=== PATIENT | male | born 1960 | race Caucasian/White ===

== ENCOUNTER 2016-06-13 15:54 | Inpatient (IN) | payer SELFPAY ==
--- NOTE | ~2016-06-13 | OP ---
Record Of Operation [facility] [address] [place] [place]. [address] NAME: KIM SMITH : 64 STATUS : ADM IN PAT#: [id number] AGE: 55 ADM/REG DATE : 06/13/16 MR#: [id number] REPORT SERV DATE: 06/13/16 DICTATED BY: RODRIGO MCCLENDON DATE: 06/13/16 REPORT STATUS : Draft TRANSCRIBED BY: MODL DATE: 06/13/16 DATE OF PROCEDURE: 06/13/2016 CARDIAC CATHETERIZATION REPORT PROCEDURE: Left heart catheterization, coronary arteriography, left ventriculography, PCI/stent of proximal LAD. INDICATION: Recent anteroseptal myocardial infarction with persistent ischemic changes in the precordial leads. DESCRIPTION OF PROCEDURE: The patient was taken emergently to the cardiac catheterization laboratory where he was prepped and draped in a sterile fashion. Conscious sedation was obtained using intravenous Versed and fentanyl. The right inguinal region was anesthetized using 1% Xylocaine. The right femoral artery was then entered using a front wall approach and cannulated with 6-Bruneian arterial sheath. A 6-Bruneian JL4 diagnostic catheter was then used to engage the left main coronary artery. Serial angiograms were obtained. This catheter was then exchanged for a 6-Bruneian Junior right catheter which was used to engage the right coronary artery. Serial angiograms were obtained. This catheter was then exchanged for a 6-Bruneian angled pigtail catheter which was used to cross the aortic valve which time a left ventriculogram was performed. The catheter was then withdrawn back across the aortic valve with no significant aortic transvalvular gradient. Results of the study are as follows: HEMODYNAMICS: Aorta 121/68 with a mean pressure of 92 mmHg. Left ventricle 126/15 with end- diastolic pressure of 26 mmHg. CORONARY ANATOMY: 1. Left Main coronary artery: The left main coronary artery arises normally from the left coronary cusp. This vessel appears normal. 2. Left anterior descending artery: The left anterior descending artery arises normally from the left main coronary artery. This vessel has a discrete 90% proximal stenosis just prior to the takeoff of the first septal air traffic instructor. The first diagonal artery has a 50% to 60% stenosis at the takeoff. The mid LAD is diffusely diseased to 40 to 50%. 3. Ramus intermedius: The ramus intermedius arises normally from the left main coronary artery. This is a medium to large caliber vessel which has a 40% to 50% stenosis in the proximal to mid segment. 4. Left circumflex artery: The left circumflex artery arises normally from the left main coronary artery. This vessel is nondominant. This vessel is diffusely diseased in its mid segment to 50%. 5. Right coronary artery: The right coronary artery arises normally from the right coronary cusp. This vessel is dominant. This vessel has a 30 to 40% tubular stenosis involving the takeoff of a medium caliber right ventricular branch. LEFT VENTRICULOGRAM: Left ventriculogram was performed which shows mild anterolateral Record Of Operation [facility] [address] [place]. [address] NAME: KIM SMITH : 64 STATUS : ADM IN [facility]#: [id number] AGE: 55 ADM/REG DATE : 06/13/16 MR#: [id number] REPORT SERV DATE: 06/13/16 DICTATED BY: RODRIGO MCCLENDON DATE: 06/13/16 REPORT STATUS : Draft TRANSCRIBED BY: ROSEMARY DATE: 06/13/16 hypokinesis. Systolic function is borderline with an ejection fraction of 50%. There is trivial mitral insufficiency. After the above findings, it was decided to proceed with PCI/stent of the proximal LAD lesion. A 6-Bruneian JL4 guiding catheter was used with a ChoICE PT 0.014 x 182 cm extra support wire to cross the proximal LAD lesion. A REBEL 2.5 x 16 mm bare-metal stent was then carefully positioned, verified its location in relation to the first diagonal artery in multiple views. It was then deployed using 11 atmospheres for 20 seconds. An additional inflation was performed at 14 atmospheres for 20 seconds. Repeat angiography revealed a 0% residual stenosis in the stented segment. There was some spasm of the vessel distal to the stent. Intracoronary Cardene was then administered and the wire was pulled back to the region of the stent. Repeat angiography revealed resolution of the spasm with EMELIA-3 grade flow and no dissection flap, thrombus, embolization, or occlusion apparent. COMPLICATIONS: There were no apparent complications. CONCLUSIONS: 1. Multivessel coronary artery disease as described above. Flow-limiting disease of the proximal LAD. 2. Regional wall motion abnormality as described above. Ejection fraction of 50%. Trivial mitral insufficiency. 3. Successful PCI/stent of 90% proximal LAD to 0% residual stenosis using a REBEL 2.5 x 16 mm bare-metal stent. 4. No apparent complications. SA/MODL Rodrigo Mcclendon M.D., [facility] / [id number] CC: Rodrigo Mcclendon M.D., [facility]
--- NOTE | ~2016-06-13 | HP ---
History And Physical [place] [id number] [facility] [place]. [address] NAME: KIM SMITH : 64 STATUS : ADM IN [facility]#: [id number] AGE: 55 ADM/REG DATE : 06/13/16 MR#: [id number] REPORT SERV DATE: 06/13/16 DICTATED BY: RODRIGO MCCLENDON DATE: 06/13/16 REPORT STATUS : Draft TRANSCRIBED BY: MODL DATE: 06/13/16 DATE OF ADMISSION: 06/13/2016 HISTORY OF PRESENT ILLNESS: Mr. Kim Smith is a 55-year-old gentleman without past known cardiac history, who presented to [facility] in [place], complaining of some substernal chest pressure and arm discomfort. The patient reports that his symptoms actually began 3 days ago while riding his bike. He reports he began experiencing bilateral arm discomfort and some chest tightness. He reports that he was having shortness of breath and got off his bike and began walking. He reports that at some point, he apparently passed out. He reports that this was not witnessed and he does not know how long he was out. He reports no tachy palpitations, nausea, or diaphoresis prior to this episode. He reports that he has had no similar episodes before or after. REVIEW OF SYSTEMS: The patient gives a qzygv-kw-qkom-day history of paroxysmal nocturnal dyspnea, orthopnea, and some intermittent chest discomfort. He denies any gastrointestinal, genitourinary, neurologic, or respiratory complaints except as per HPI. PAST MEDICAL HISTORY: The patient reports is unremarkable. The patient is very pleasant, but seems somewhat challenged when asked to recall previous history, family history, and review of systems. He reports he is disabled but cannot explain why this is so. He denies any previous operations or hospitalizations. MEDICATIONS PRIOR TO ADMISSION: None. ALLERGIES: THE PATIENT REPORTS HE DOES NOT THINK HE IS ALLERGIC TO ANYTHING. SOCIAL HISTORY: The patient smokes approximately one pack per day. PHYSICAL EXAMINATION: GENERAL: This is a well-developed, well-nourished, 55-year-old white male, who is alert and oriented x3, but who appears to have some difficulty answering questions secondary to cognitive inability to do so. This patient appears older than his stated age. VITAL SIGNS: Blood pressure 120/70, pulse 70, and respiratory rate 16. NECK: No jugular venous distention, hepatojugular reflux, or carotid bruits. CARDIOVASCULAR: Normal rate with regular rhythm. No murmur, gallop, click, or rub. LUNGS: Clear to auscultation without wheezes, rales, or rhonchi. ABDOMEN: Soft, nontender, and nondistended. Positive bowel sounds. EXTREMITIES: Without clubbing, cyanosis, or edema. DATA: EKG shows what appears to be a recent anteroseptal myocardial infarction with ongoing ST-segment elevation. Troponin reported from [facility] was greater than 6. ASSESSMENT: History And Physical [address] [address] NAME: KIM SMITH : 64 STATUS : ADM IN [facility]#: [id number] AGE: 55 ADM/REG DATE : 06/13/16 MR#: [id number] REPORT SERV DATE: 06/13/16 DICTATED BY: RODRIGO MCCLENDON DATE: 06/13/16 REPORT STATUS : Draft TRANSCRIBED BY: ROSEMARY DATE: 06/13/16 1. Recent anteroseptal myocardial infarction with ongoing ischemia. 2. Coronary artery disease. 3. Cognitive dysfunction. PLAN: 1. Emergent left heart catheterization and PCI. 2. We will ask for social sciences department chair evaluation of the patient's social situation. We will try to arrange some type of medication assistance for him as an outpatient. /ROSEMARY Rodrigo Mcclendon M.D., [facility] / [id number] CC: Rodrigo Mcclendon M.D., [facility]
[2016-06-13 20:46] LABS: CK-MB 3.1 NG/ML; CPK < 7 U/L (0-200)
[2016-06-13 20:47] LABS: TROPONIN I 5.17 NG/ML (<0.05)
[2016-06-14 02:14] LABS: BASOPHILS 0.5 %; BASOPHILS ABSOLUTE 0.04 10/3/uL (0.0-0.16); EOSINOPHILS 2.8 %; EOSINOPHILS ABSOLUTE 0.25 10/3/uL (0.0-0.53); HEMATOCRIT 36.2 % (40.0-51.0); HEMOGLOBIN 12.3 g/dL (13.6-17.8); IMMATURE GRANULOCYTES 0.2 %; IMMATURE GRANULOCYTES ABSOLUTE 0.02 10/3/uL (0.0-0.11); LYMPHOCYTES 28.6 %; LYMPHOCYTES ABSOLUTE 2.52 10/3/uL (0.67-4.30); MEAN CORPUSCULAR HEMOGLOB 31.9 pg (26.0-34.0); MEAN PLATELET VOLUME 9.4 fL (9.2-13.0); MONOCYTES 9.4 %; MONOCYTES ABSOLUTE 0.83 10/3/uL (0.21-1.20); NEUTROPHILS 58.5 %; NEUTROPHILS ABSOLUTE 5.16 10/3/uL (2.02-8.40); PLATELET COUNT 182 10/3/uL (150-400); RBC DISTRIBUTION WIDTH 14.7 % (12.0-16.0); RED CELL COUNT 3.85 10/6/uL (4.7-6.1); WHITE BLOOD CELLS 8.8 10/3/uL (4.5-10.5)
[2016-06-14 02:15] LABS: MANUAL DIFF NO %
[2016-06-14 02:31] LABS: BUN (BLOOD UREA NITROGEN) 16 MG/DL (6-23); CALCIUM, SERUM 8.2 MG/DL (8.5-10.4); CHLORIDE, SERUM 107 MMOL/L (96-112); CHOL/HDL RATIO(NOT ORDER) 2.3 (0-5); CHOLESTEROL 154 MG/DL (< 200); CK-MB 16.4 NG/ML; CO2 (CARBON DIOXIDE) 27 MMOL/L (24-34); CPK 372 U/L (0-200); CREATININE 0.87 MG/DL (0.70-1.30); GFR AFRICAN AMERICAN 114 ML/MIN (>=60); GFR NON AFRICAN AMERICAN 99 ML/MIN (>=60); GLUCOSE, SERUM 93 MG/DL (60-99); HDL CHOLESTEROL 67 MG/DL (> 39); LDL CHOLESTEROL 78 MG/DL (< 130); NON-HDL CHOLESTEROL 87 MG/DL (< 160); POTASSIUM, SERUM 3.9 MMOL/L (3.5-5.3); SODIUM, SERUM 142 MMOL/L (135-148); TRIGLYCERIDE 47 MG/DL (< 150)
[2016-06-14 02:32] LABS: CKMB INDEX (NOT ORD) 4.4
[2016-06-14 10:58] LABS: CK-MB 16.9 NG/ML; CKMB INDEX (NOT ORD) 4.6; TROPONIN I 7.08 NG/ML (<0.05)
[2016-06-14 18:54] LABS: CK-MB 10.3 NG/ML
[2016-06-14 18:55] LABS: CKMB INDEX (NOT ORD) 3.2
[2016-06-15 05:31] LABS: CREATININE 1.09 MG/DL (0.70-1.30)
[2016-06-15] MEDS ORDERED: PLAVIX PO (10:27)
[2016-06-15] MEDS ORDERED: LIPITOR40 PO (10:28)
[2016-06-15] MEDS ORDERED: ASA5GR PO (10:28)
[2016-06-15] MEDS ORDERED: ALTA2.5 PO (10:29)
[2016-06-15] MEDS ORDERED: LOP25 PO (10:29)
== END 2016-06-15 13:02 | disposition home or self-care (01) | DRG 249 ==
LOC: SSU2 15:54 → CCU 17:50 → 5NO 06-14 22:35
PROVIDERS: Internal Medicine Interventional Cardiology
PROC: 4A023N7 Measurement of Cardiac Sampling and Pressure, Left Heart, Percutaneous Approach (ICD-10-PCS; principal; 2016-06-13)
PROC: 02703DZ Dilation of Coronary Artery, One Artery with Intraluminal Device, Percutaneous Approach (ICD-10-PCS; 2016-06-13)
PROC: B2151ZZ Fluoroscopy of Left Heart using Low Osmolar Contrast (ICD-10-PCS; 2016-06-13)
PROC: B2111ZZ Fluoroscopy of Multiple Coronary Arteries using Low Osmolar Contrast (ICD-10-PCS; 2016-06-13)
DX: I21.09 ST elevation (STEMI) myocardial infarction involving other coronary artery of anterior wall (principal); F17.210 Nicotine dependence, cigarettes, uncomplicated; I25.10 Atherosclerotic heart disease of native coronary artery without angina pectoris
CPT/HCPCS: 71010; 80048; 80061; 82550; 82553; 82565; 84484; 85025; 87641; 90686; 92941; 93005; 93458; 99152; A9270-GY; C1769; C1876; C1887; C1894; G0008; J0583; J2250; J3010; Q9967